=== PATIENT | female | born 1970 | race Hispanic/Latino ===

== ENCOUNTER → 2021-01-11 | Outpatient (CLI) | payer BC | END | disposition home or self-care (01) | LOC: RAH 11:16 | PROVIDERS: ATTEND Allergy & Immunology | DX: S42.202A Unspecified fracture of upper end of left humerus, initial encounter for closed fracture (principal); J45.40 Moderate persistent asthma, uncomplicated; X58.XXXA Exposure to other specified factors, initial encounter; Y93.89 Activity, other specified; Y92.89 Other specified places as the place of occurrence of the external cause; Y99.8 Other external cause status | CPT/HCPCS: 71250; 73030 ==

== ENCOUNTER → 2022-08-29 | Outpatient (CLI) | payer BC | END | disposition home or self-care (01) | LOC: RAH 10:14 | PROVIDERS: ATTEND Internal Medicine Gastroenterology | DX: R14.0 Abdominal distension (gaseous) (principal) | CPT/HCPCS: 78264; A9541 ==

== ENCOUNTER → 2022-11-26 | Outpatient (CLI) | payer BC | END | disposition home or self-care (01) | LOC: RAH 08:33 | PROVIDERS: ATTEND Family Medicine | DX: Z12.31 Encounter for screening mammogram for malignant neoplasm of breast (principal) | CPT/HCPCS: 77067 ==

== ENCOUNTER → 2023-01-20 | Outpatient (CLI) | payer BC | END | disposition home or self-care (01) | LOC: RAH 09:55 | PROVIDERS: ATTEND Chiropractor Sports Physician | DX: M51.37 Other intervertebral disc degeneration, lumbosacral region (principal); M47.817 Spondylosis without myelopathy or radiculopathy, lumbosacral region | CPT/HCPCS: 72110 ==

== ENCOUNTER 2024-07-13 05:35 | Emergency (ER) | payer BC ==
[~2024-07-13] VITALS: Ht 172.7 cm; Wt 88.5 kg
[2024-07-13 05:51] LABS: APPEARANCE,URINE CLEAR (CLEAR); BILIRUBIN,URINE NEGATIVE (NEGATIVE); COLOR,URINE LIGHT-YELLOW (YELLOW); GLUCOSE, URINE (UA) NEGATIVE (NEGATIVE); KETONES,URINE 10 mg/dL (NEGATIVE); LEUKOCYTE ESTERASE ,URINE NEGATIVE Leu/uL (NEGATIVE); NITRATE,URINE NEGATIVE (NEGATIVE); OCCULT BLOOD,URINE NEGATIVE (NEGATIVE); PH,URINE 6.5 (5.0-8.0); PROTEIN,URINE NEGATIVE (NEGATIVE); UROBILINOGEN,URINE 0.2 mg/dL (0.2-1.0)
[2024-07-13 05:53] LABS: ADD UA MICROSCOPIC YES
[2024-07-13 05:55] LABS: BACTERIA,URINE MANY /HPF (None Seen); RBC,URINE 0-1 /HPF (0-1); SQUAMOUS EPITHELIAL CELL,UR RARE /HPF (0-2)
[2024-07-13 05:56] LABS: HCG,QUALITATIVE URINE NEGATIVE (NEGATIVE)
[2024-07-13] MEDS: LACTATED RINGERS 1000ML 1,000 ML IV ONE (05:59)
[2024-07-13] MEDS: morPHINE 2 MG SYG IVP ONE (06:00)
[2024-07-13] MEDS: ondanSETRON 4MG INJ IVP ONE (06:00)
[2024-07-13] MEDS: ketOROlac 15MG/ML VIAL (15MG/ML) IV ONE (06:13)
[2024-07-13 06:14] LABS: BASOPHILS # (AUTO) 0.05 K/uL (0.00-0.20); BASOPHILS % (AUTO) 0.6 % (0.0-5.0); EOSINOPHILS # (AUTO) 0.12 K/uL (0.00-0.70); EOSINOPHILS % (AUTO) 1.3 % (0.0-8.0); HEMATOCRIT 44.8 % (36-48); IMMATURE GRANULOCYTE ABSOLUTE 0.03 K/uL (0-1); LYMPHOCYTES # (AUTO) 2.9 K/uL (1.0-4.8); LYMPHOCYTES % (AUTO) 32.5 % (21.0-51.0); MEAN CORPUSCULAR HEMOGLOBIN 31.4 pg (27.0-33.0); MEAN CORPUSCULAR HGB CONC 35.3 g/dL (32.0-36.0); MEAN CORPUSCULAR VOLUME 89.1 fL (79-99); MONOCYTES # (AUTO) 0.7 K/uL (0.1-1.0); MONOCYTES % (AUTO) 7.3 % (3.0-13.0); NEUTROPHILS # (AUTO) 5.2 K/uL (1.8-7.7); PLATELET COUNT (AUTO) 221 K/uL (130-400); RED BLOOD CELL COUNT(AUTO) 5.03 MIL/uL (4.00-5.50); RED CELL DISTRIBUTION WIDTH 13.1 % (11.0-15.5); WHITE BLOOD COUNT (AUTO) 8.9 K/uL (4.8-10.8)
[2024-07-13 06:29] LABS: ALBUMIN 3.9 g/dL (3.5-5.0); BILIRUBIN,TOTAL 1.1 mg/dL (0.2-1.0); CREATININE 0.8 mg/dL (0.5-1.0); POTASSIUM 3.3 mmol/L (3.5-5.1); TOTAL PROTEIN, SERUM 7.5 g/dL (6.0-8.3)
[2024-07-13] MEDS: cefTRIAXone 1G VIAL IVPB SCH (06:41)
[2024-07-13 07:22] VITALS: BP 160/90; PULSE 76; RESP 16; TEMP 98; O2SAT 98
[2024-07-13] MEDS ORDERED: MICO24CM2 VG (07:46)
[2024-07-13] MEDS ORDERED: CEPH500B PO (07:46)
[2024-07-13] MEDS ORDERED: PHEN-846 PO (07:46)
[2024-07-13] MEDS: PHENAZOpyridine HCL 200 MG TAB 200 MG TABLET PO ONE (07:59)
== END 2024-07-13 08:02 | disposition home or self-care (01) ==
LOC: EDH 05:35
DX: R30.0 Dysuria (principal); I10 Essential (primary) hypertension; Z88.1 Allergy status to other antibiotic agents; Z98.890 Other specified postprocedural states
CPT/HCPCS: 99284; 96365; 96375; 96361; 80053; 83690; 85025; 87086; 81001; 81025; 36415; J7120; J0696; J2405; J1885; J2270

== ENCOUNTER 2024-09-03 10:43 | Emergency (ER) | payer BC ==
[~2024-09-03] VITALS: Ht 172.7 cm; Wt 83.9 kg
[~2024-09-03 10:43] MED LIST: CEPH500B PO; MICO24CM2 VG; PHEN-846 PO
--- NOTE | 2024-09-03 11:17 | ERN ---
ED Note History of Present Illness Stated Complaint: LOWER ABD PAIN Chief Complaint: Abdominal Pain Time Seen by MD: 10:44 Dictation: Patient is a 54-year-old female with a past medical history of hypertension and hypothyroidism who is here for suprapubic pain. Patient has dates she has had this pain for the past month and she finally came in due to not being able to sleep comfortably. She denies any dysuria, incontinence or problems with emptying her bladder completely. She describes the pain being pressure-like with some pain radiating to the back. She states she has not had a menstrual period in over a year. She states she saw some blood clots when urinating about 2 weeks ago but denies any bleeding since then. She states she had some imaging done with her OBGYN but was waiting on results. In the meantime she also went to urgent care and an ultrasound of the kidneys and bladder was insignificant. Patient admits she has some hot flashes and chills she is currently on hormonal replacement therapy. She denies any fevers, cough, dizziness, headaches or changes in appetite. No pertinent family history. Allergies: Coded Allergies: azithromycin (Unverified Allergy, Unknown, 07/13/24) Home Meds Active Scripts Cephalexin Monohydrate (Keflex) 500 Mg Cap, 1 CAP PO BID for 10 Days, #20 CAP 0 Refills Prov:REGINA BEATTY MD 07/13/24 Miconazole Nitrate (Monistat 3) 4 % (200 Mg)-2 % (9 Gram) Cmb.pf.crm, 1 CÉSAR VG HS for 3 Days, #24 GM 0 Refills Prov:REGINA BEATTY MD 07/13/24 Phenazopyridine HCl (Pyridium) 100 Mg Tab, 1 TAB PO TID for urinary discomfort for 2 Days, #6 TAB 0 Refills Prov:REGINA BEATTY MD 07/13/24 Past Medical History Past Medical History: Hypertension, Hypothyroid, Other Additional Past Medical Hx: ADHD Surgical History: Other Surgical History Other: LEFT SHOULDER LMP: Aug 06, 2024 Review of System Dictation Constitutional-no weight loss/gain, fever. positive for intermittent hot flashes and chills Eyes-no injury, pain, redness and discharge ENT-no injury, pain, swelling Cardiovascular no chest pain, palpitations, edema Respiratory no shortness of breath, cough, wheezing Abdomen/GI-no diarrhea, constipation, vomiting, nausea. positive for lower abdominal pain Back no injury. mid lower back pain Genitourinary no injury, or discharge. some blood in urine two weeks ago Musculoskeletal/extremities no injury, deformity Skin no rash, discoloration Neuro-no headache, weakness, numbness, tingling, seizures, tremors Psych-no suicidal ideation, homicidal ideation, hallucinations, depression, anxiety, memory loss Initial Vital Sign VS Vital Signs Date Time Temp Pulse Resp B/P (MAP) Pulse Ox O2 Delivery O2 Flow Rate FiO2 09/03/24 10:44 97.9 73 16 127/88 100 Room Air 0 09/03/24 11:43 21 Physical Exam Dictation General-patient is awake alert and oriented Head/neck-normocephalic, atraumatic Eyes-PERRL, EOMI, vision at baseline Neck-trachea midline, supple, no nuchal rigidity Cardiovascular-RRR, normal S1/S2, no MRG is, no JVD Respiratory-no distress, wheezing, rales, rhonchi Abdomen-no guarding, soft, nondistended. tenderness to palpation of the suprapubic region Skin warm, dry, normal turgor, no rash Musculoskeletal/extremities pulses equal, no cyanosis Neuro-COA X 4, GCS 15, strength 5/5, CN 2-12 intact Psych-normal behavior, mood and affect normal Results (Laboratory/Radiology) Laboratory/Radiology Laboratory Tests Test 09/03/24 11:15 09/03/24 11:18 Urine Color YELLOW (YELLOW) Urine Appearance CLEAR (CLEAR) Urine pH 6.5 (5.0-8.0) Urine Specific [place] 1.018 (1.001-1.031) Urine Protein NEGATIVE mg/dL (NEGATIVE) Urine Glucose (UA) NEGATIVE mg/dL (NEGATIVE) Urine Ketones NEGATIVE mg/dL (NEGATIVE) Urine Occult Blood NEGATIVE (NEGATIVE) Urine Nitrate NEGATIVE (NEGATIVE) Urine Bilirubin NEGATIVE mg/dL (NEGATIVE) Urine Urobilinogen 0.2 mg/dL (0.2-1.0) Urine Leukocyte Esterase NEGATIVE [place]/uL White Blood Count 8.3 K/uL (4.8-10.8) Red Blood Count 5.13 MIL/uL (4.00-5.50) Hemoglobin 16.2 g/dL (12.0-16.0) H Hematocrit 47.6 % (36-48) Mean Corpuscular Volume 92.8 fL (79-99) Mean Corpuscular Hemoglobin 31.6 pg (27.0-33.0) Mean Corpuscular Hemoglobin Concent 34.0 g/dL (32.0-36.0) Red Cell Distribution Width 11.8 % (11.0-15.5) Platelet Count 252 K/uL (130-400) Mean Platelet Volume 11.2 fL (7.5-10.5) H Immature Granulocyte % (Auto) 0.2 % (0-1) Neutrophils (%) (Auto) 67.7 % (40.0-77.0) Lymphocytes (%) (Auto) 24.8 % (21.0-51.0) Monocytes (%) (Auto) 5.5 % (3.0-13.0) Eosinophils (%) (Auto) 1.2 % (0.0-8.0) Basophils (%) (Auto) 0.6 % (0.0-5.0) Neutrophils # (Auto) 5.6 K/uL (1.8-7.7) Lymphocytes # (Auto) 2.1 K/uL (1.0-4.8) Monocytes # (Auto) 0.5 K/uL (0.1-1.0) Eosinophils # (Auto) 0.10 K/uL (0.00-0.70) Basophils # (Auto) 0.05 K/uL (0.00-0.20) Absolute Immature Granulocyte (auto 0.02 K/uL (0-1) Nucleated Red Blood Cells 0.0 % (0.0-0.19) Sodium Level 138 mmol/L (136-145) Potassium Level 5.2 mmol/L (3.5-5.1) H Chloride Level 102 mmol/L (101-111) Carbon Dioxide Level 31 mmol/L (21-32) Blood Urea Nitrogen 13 mg/dL (7-18) Creatinine 0.8 mg/dL (0.5-1.0) Glomerular Filtration Rate Calc 88 mL/min (>90) Random Glucose 79 mg/dL (70-105) Total Calcium 9.5 mg/dL (8.5-10.1) Serum Test, Qualitative NEGATIVE (NEGATIVE) Labs Reviewed?: Yes ED Course ED Course Orders Procedure Category Date Status Time Cbc With Differential LAB 09/03/24 Complete 11:00 Basic Metabolic Panel LAB 09/03/24 Complete 11:00 Testing, LAB 09/03/24 Complete Serum Hcg 11:00 Urinalysis Profile LAB 09/03/24 Complete 11:00 Ketorolac PHA 09/03/24 Complete Tromethamine 15mg/Ml 12:00 Albuterol 0.042% PHA 09/03/24 Complete 1.25mg/3ml (Proventil 12:00 Albuterol 0.083% PHA 09/03/24 Complete 2.5mg/3ml (Proventil 12:30 Current Medications Medications (Trade) Dose Ordered Sig/Edda Route PRN Reason Start Time Stop Time Status Last Admin Dose Admin Albuterol Sulfate (Proventil 0.042% 1.25mg/ 3ml) 1.25 ONCE ONCE IH 09/03/24 12:00 09/03/24 12:03 DC Albuterol Sulfate (Proventil 0.083% 2.5mg/3ml) 1 mg ONCE ONCE IH 09/03/24 12:30 09/03/24 12:31 DC 09/03/24 12:35 Ketorolac Tromethamine (toRADol) 15 mg ONCE ONCE IV 09/03/24 12:00 09/03/24 12:03 DC 09/03/24 12:30 Vital Signs Date Time Temp Pulse Resp B/P (MAP) Pulse Ox O2 Delivery O2 Flow Rate FiO2 09/03/24 12:30 76 18 09/03/24 11:43 98.1 70 16 125/85 100 Room Air* 0 21 09/03/24 10:44 97.9 73 16 127/88 100 Room Air 0 Medical Decision Making [facility] MDM INITIAL IMPRESSION Initial history and physical concerning for Contributing medical problems: I have reviewed the triage nursing notes and vital signs. Initial plan: Laboratory evaluation DATA REVIEW I have reviewed additional NN, repeat VS, and monitoring where indicated. Heart rate, blood pressure, and O2 saturation are acceptable. ED COURSE Interventions: Reassessment: DISPOSITION Final diagnostic impression: I discussed my findings, clinical impression and treatment recommendations with the patient. My final plan for disposition was made based upon -mild risk of complications and potential morbidity of the patient's condition. -Discussion with the patient regarding management options. [diposition] Educated patient on proper PCP follow-up and discussing switching hypertension medication due to hyperkalemia. DX & DISP Disposition: Discharge Departure Impression: Primary Impression: Dysfunctional uterine bleeding Additional Impressions: Premenopausal patient, Hyperkalemia Condition: Stable Scripts Sodium Zirconium Cyclosilicate (Lokelma) 10 Gram Powd.pack 1 PACKET PO DAILY for 7 Days, #7 PACKET 0 Refills Prov: REGINA BEATTY MD 09/03/24 Additional Instructions: FOLLOW-UP WITH PRIMARY CARE PROVIDER IN 1 TO 2 DAYS. TAKE MEDICATIONS DIRECTED HERE IN THE EMERGENCY ROOM. OKAY TO CONTINUE HOME MEDICATIONS UNLESS OTHERWISE DISCUSSED DURING YOUR VISIT IN THE EMERGENCY ROOM TODAY. RETURN TO YOUR NEAREST EMERGENCY ROOM IF SYMPTOMS WORSEN OR IF THERE IS NO IMPROVEMENT. CALL 911 IF YOU NEED IMMEDIATE ASSISTANCE. TAKE TYLENOL [id number] NEEDED AND IF NO CONTRAINDICATIONS ARE PRESENT. INCREASE ORAL HYDRATION. A WOUND CULTURE OR URINE CULTURE WAS ORDERED HERE IN THE EMERGENCY ROOM DEPARTMENT PLEASE FOLLOW-UP WITH PRIMARY CARE PROVIDER AND ADVISE THEM TO GET REPEAT PORTS FROM OUR FACILITY. IF YOU HAD ANY HUGH WRAP/SPLINTS THAT WERE APPLIED HERE, PLEASE DO NOT REMOVE THEM UNTIL YOU SEE YOUR PRIMARY CARE OR SPECIALTY. Referrals: Referrals: SELF,REFERRAL (PCP) MUNA WRIGHT MD Time of Disposition: 12:37 I have reviewed, & agreed with my scribe's, documentation. (Entered by Olga mueller, acting as a scribe for Dr. Beatty) I have reviewed the case I was present and participated in the care of this patient alongside the resident physician. I have reviewed and personally made and improve the management plan that is documented in the note by myself or the resident physician. I acknowledge full responsibility for the patient's management plan. I personally scribed for REGINA BEATTY MD ([email or web address]) on 09/03/24 at 12:39. Electronically submitted by Olga Pace ([email or web address]). SEBASTIAN SMITH MD Sep 03, 2024 11:16 REGINA BEATTY MD Sep 03, 2024 12:39
[2024-09-03 11:31] LABS: BASOPHILS # (AUTO) 0.05 K/uL (0.00-0.20); BASOPHILS % (AUTO) 0.6 % (0.0-5.0); EOSINOPHILS % (AUTO) 1.2 % (0.0-8.0); HEMATOCRIT 47.6 % (36-48); IMMATURE GRANULOCYTE ABSOLUTE 0.02 K/uL (0-1); LYMPHOCYTES # (AUTO) 2.1 K/uL (1.0-4.8); LYMPHOCYTES % (AUTO) 24.8 % (21.0-51.0); MEAN CORPUSCULAR HEMOGLOBIN 31.6 pg (27.0-33.0); MEAN CORPUSCULAR VOLUME 92.8 fL (79-99); MONOCYTES # (AUTO) 0.5 K/uL (0.1-1.0); MONOCYTES % (AUTO) 5.5 % (3.0-13.0); NEUTROPHILS # (AUTO) 5.6 K/uL (1.8-7.7); NEUTROPHILS % (AUTO) 67.7 % (40.0-77.0); PLATELET COUNT (AUTO) 252 K/uL (130-400); RED BLOOD CELL COUNT(AUTO) 5.13 MIL/uL (4.00-5.50); RED CELL DISTRIBUTION WIDTH 11.8 % (11.0-15.5); WHITE BLOOD COUNT (AUTO) 8.3 K/uL (4.8-10.8)
[2024-09-03 11:34] LABS: APPEARANCE,URINE CLEAR (CLEAR); BILIRUBIN,URINE NEGATIVE (NEGATIVE); COLOR,URINE YELLOW (YELLOW); GLUCOSE, URINE (UA) NEGATIVE (NEGATIVE); KETONES,URINE NEGATIVE (NEGATIVE); LEUKOCYTE ESTERASE ,URINE NEGATIVE Leu/uL (NEGATIVE); NITRATE,URINE NEGATIVE (NEGATIVE); OCCULT BLOOD,URINE NEGATIVE (NEGATIVE); PH,URINE 6.5 (5.0-8.0); PROTEIN,URINE NEGATIVE (NEGATIVE); UROBILINOGEN,URINE 0.2 mg/dL (0.2-1.0)
[2024-09-03 11:35] LABS: ADD UA MICROSCOPIC NO
[2024-09-03 11:43] VITALS: BP 125/85; TEMP 98.1; O2SAT 100
[2024-09-03 11:51] LABS: CREATININE 0.8 mg/dL (0.5-1.0); POTASSIUM 5.2 mmol/L (3.5-5.1)
[2024-09-03 12:30] VITALS: PULSE 76; RESP 18
[2024-09-03] MEDS: ketOROlac 15MG/ML VIAL (15MG/ML) IV ONE (12:30)
[2024-09-03] MEDS: ALBUTEROL 0.083% 2.5 MG/3 ML INH IH ONE (12:35)
[2024-09-03] MEDS: ALBUTEROL 0.042% 1.25MG/3ML IH ONE (12:35)
[2024-09-03] MEDS ORDERED: SODI10PO2 PO (12:42)
== END 2024-09-03 13:18 | disposition home or self-care (01) ==
LOC: EDH 10:43
DX: N93.8 Other specified abnormal uterine and vaginal bleeding (principal); N92.4 Excessive bleeding in the premenopausal period; E87.5 Hyperkalemia; E03.9 Hypothyroidism, unspecified; I10 Essential (primary) hypertension; Z88.1 Allergy status to other antibiotic agents
CPT/HCPCS: 99284; 96374; 80048; 84703; 85025; 81003; 36415; 94640; J1885

== ENCOUNTER → 2025-01-31 | Outpatient (CLI) | payer BC ==
[~2025-01-31] MED LIST changes: +SODI10PO2 PO
--- NOTE | 2025-01-31 10:08 | HMCIMG ---
MAMMO SCREENING BILATERAL HISTORY: Screening mammogram. COMPARISON: 01/31/2025 TECHNIQUE: Bilateral screening mammogram with CAD was performed with craniocaudal and mediolateral oblique projections. FINDINGS: The breasts are extremely dense which lowers the sensitivity of mammogram. There is no evidence of a dominant mass, or suspicious microcalcification. There is no evidence of nipple retraction or skin thickening. IMPRESSION: 1. Stable mammogram. Patient was entered into a reminder system with a target due date for their next mammogram. BI-RADS: CATEGORY 2: BENIGN FINDINGS Recommend monthly self breast exam as well as annual clinical examination. A negative x-ray should not delay biopsy if a dominant or clinically suspicious mass is present, since 8-10% of cancers are not identified by mammography. Dense breasts particularly, may obscure an underlying neoplasm. Some of these may be detected clinically and therefore, clinical examination is an essential part of breast evaluation.
== END | disposition home or self-care (01) ==
LOC: RAH 07:47
PROVIDERS: ATTEND Obstetrics & Gynecology
DX: Z12.31 Encounter for screening mammogram for malignant neoplasm of breast (principal); R92.30 Dense breasts, unspecified
CPT/HCPCS: 77067

== ENCOUNTER → 2025-05-02 | Outpatient (CLI) | payer OTHER ==
--- NOTE | 2025-05-03 04:47 | HMCIMG ---
EXAM: CR Cervical spine, 5 views. CLINICAL HISTORY: Cervicalgia. COMPARISON: None provided. FINDINGS: No spondylolisthesis in flexion or extension. Straightening of the expected cervical lordosis with subtle levocurvature reflects paraspinal muscle spasm. Mild to moderate spondylosis and degenerative disc space narrowing, most pronounced at C6-C7. Normal vertebral body heights. No acute fracture. The prevertebral soft tissues are within normal limits. The included lungs are clear. IMPRESSION: No spondylolisthesis in flexion or extension. No acute fracture. Straightening of the expected cervical lordosis with subtle levocurvature reflects paraspinal muscle spasm. Mild to moderate spondylosis and degenerative disc space narrowing, most pronounced at C6-C7. /[place]
== END | disposition home or self-care (01) ==
LOC: RAH 12:13
PROVIDERS: ATTEND Physical Medicine & Rehabilitation
DX: M47.812 Spondylosis without myelopathy or radiculopathy, cervical region (principal); M48.02 Spinal stenosis, cervical region; M50.20 Other cervical disc displacement, unspecified cervical region
CPT/HCPCS: 72050